=== PATIENT | male | born 1975 | race Caucasian/White ===

== ENCOUNTER 2017-01-14 08:40 | Day surgery (SDC) | payer BC ==
[~2017-01-14] VITALS: Ht 177.8 cm; Wt 104.5 kg
[~2017-01-14 08:40] MED LIST: COCAINE TOPICAL SOLN 4%, 4ML ONE; EPINEPHRINE 1 MG/ML, 1ML ONE; LIDOCAINE/PF 1%, 30ML ONE; LISI1TAB3 PO; LOVA40TA2 PO; MULT1TAB60 PO; MUPIROCIN OINT 2%, 22GM ONE; OXYMETAZOLINE NASAL SPRAY 0.05%, 15ML ONE
[2017-01-14] MEDS ORDERED: LACTATED RINGERS 1,000 ML IV SCH (09:19)
[2017-01-14 09:22] VITALS: BP 145/88
[2017-01-14] MEDS ORDERED: MIDAZOLAM 1 MG/ML, 2ML IV PRN (09:30)
[2017-01-14] MEDS ORDERED: ACETAMINOPHEN 325 MG TABLET PO PRN (09:30)
[2017-01-14] MEDS ORDERED: OXYcodone 5 MG/5 ML ORAL.SOL UDC PO PRN (09:30)
[2017-01-14] MEDS ORDERED: HYDROmorphone 1 MG/ML, 1ML IV PRN (09:30)
[2017-01-14] MEDS ORDERED: hydrALAzine 20 MG/ML, 1ML IV PRN (09:30)
[2017-01-14] MEDS ORDERED: ONDANSETRON 2MG/ML, 2ML IVPush PRN (09:30)
[2017-01-14] MEDS ORDERED: FENTANYL PF 100 MCG/2ML IV PRN (09:30)
[2017-01-14] MEDS ORDERED: LABETALOL 5MG/ML, 20ML IV PRN (09:30)
[2017-01-14] MEDS ORDERED: PROMETHAZINE 25 MG/ML, 1ML IV PRN (09:30)
[2017-01-14] MEDS ORDERED: MEPERIDINE/PF 25MG/0.5ML IVPush PRN (09:30)
[2017-01-14] MEDS ORDERED: FENTANYL PF 250 MCG/5ML ONE (09:52)
[2017-01-14] MEDS ORDERED: MIDAZOLAM 1 MG/ML, 2ML ONE (09:52)
[2017-01-14] MEDS ORDERED: SCOPOLAMINE PATCH, 1.5MG PATCH.TD72 TD ONE ×2 (10:44)
[2017-01-14] MEDS ORDERED: ONDANSETRON 2MG/ML, 2ML ONE (10:50)
[2017-01-14] MEDS ORDERED: PROPOFOL 10 MG/ML, 20ML ONE (10:50)
[2017-01-14] MEDS ORDERED: ROCURONIUM 10 MG/ML ONE (10:50)
[2017-01-14] MEDS ORDERED: PROPOFOL 10 MG/ML, 50ML ONE (10:50)
[2017-01-14] MEDS ORDERED: CEFAZOLIN 1,000 MG ONE (10:50)
[2017-01-14] MEDS ORDERED: DEXAMETHASONE 4 MG/ML, 1ML ONE (10:50)
[2017-01-14] MEDS ORDERED: REMIFENTANIL 2 MG ONE (10:52)
[2017-01-14] MEDS ORDERED: OXYcodone 5 MG/5 ML ORAL.SOL UDC ONE (13:15)
[2017-01-14] MEDS ORDERED: ACETAMINOPHEN 650 MG/20.3 ML UDC ONE (13:15)
== END 2017-01-14 14:55 ==
LOC: OUT 08:40
PROVIDERS: ATTEND Otolaryngology Facial Plastic Surgery
DX: J34.2 Deviated nasal septum (principal); J34.3 Hypertrophy of nasal turbinates; J34.89 Other specified disorders of nose and nasal sinuses; I10 Essential (primary) hypertension; F41.9 Anxiety disorder, unspecified; E78.5 Hyperlipidemia, unspecified; Z88.1 Allergy status to other antibiotic agents
CPT/HCPCS: 30465; 30930; 52000; J0171; J0690; J1100; J2250; J2405; J2704; J3010; J3490; J7120